=== PATIENT | male | born 1965 | race African-American/Black ===

== ENCOUNTER 2019-01-09 03:58 | Emergency (ER) | payer OTHER ==
[2019-01-09] MEDS ORDERED: Acetaminophen 500 MG TAB ONE (04:22)
--- NOTE | 2019-01-09 08:32 | RAD ---
AP VIEW CHEST: HISTORY: Chest pain. Hypertension and diabetes. FINDINGS: AP view chest is obtained on 01/09/2019. Comparison study is not available. AP view chest demonstrates minimal pulmonary vascular congestion seen. No evidence of effusions, pne umonia, or pneumothorax is seen. IMPRESSION: Unremarkable AP view chest. POS: [facility]
== END 2019-01-09 04:30 ==
LOC: ERS 03:58
DX: R07.9 Chest pain, unspecified (principal); I10 Essential (primary) hypertension; E11.9 Type 2 diabetes mellitus without complications; Z79.84 Long term (current) use of oral hypoglycemic drugs; Z79.82 Long term (current) use of aspirin
CPT/HCPCS: 71045; 93005